=== PATIENT | male | born 1955 | race Caucasian/White ===

== ENCOUNTER → 2019-12-11 | Outpatient (CLI) | payer OTHER | LOC: M.RAD 10:07 | DX: R05 Cough (principal); J06.9 Acute upper respiratory infection, unspecified ==

== ENCOUNTER → 2020-02-05 | Outpatient (CLI) | payer OTHER | LOC: M.RAD 16:07 | DX: R91.8 Other nonspecific abnormal finding of lung field (principal); M54.5 Low back pain; J98.8 Other specified respiratory disorders ==

== ENCOUNTER → 2020-02-20 | Outpatient (CLI) | payer OTHER | LOC: M.LAB 11:05 | PROVIDERS: ATTEND Internal Medicine | DX: U07.1 COVID-19 (principal) ==